=== PATIENT | female | born 1980 | race Two or more races ===

== ENCOUNTER 2021-03-09 07:34 | Outpatient (REF) | payer OTHER, SELFPAY ==
[2021-03-23 16:02] LABS: Binax Internal Control QC Valid; Binax Now Covid-19 Ag Negative (Negative)
== END 2021-03-09 07:35 | disposition home or self-care (01) ==
LOC: HO.LAB 07:34
PROVIDERS: Visit Provider Internal Medicine
DX: Z13.89 Encounter for screening for other disorder (principal)

== ENCOUNTER 2021-07-26 10:18 | Outpatient (REF) | payer OTHER, SELFPAY ==
[2021-07-26 11:12] LABS: MANUAL DIFF FLAG NO
[2021-07-26 11:21] LABS: Basophils Absolute Auto 0.1 X10*3/uL (0.0-0.2); Basophils Percent Auto 0.6 % (0-2); Eosinophils Absolute Auto 0.1 X10*3/uL (0.0-0.4); Eosinophils Percent Auto 1.1 % (0-4); Hematocrit 40.1 % (37.0-47.0); Hemoglobin 13.2 g/dl (12.0-16.0); Imm Gran Abs Auto 0.04 X10*3/uL (0.00-0.03); Imm Gran Pct Auto 0.4 % (0.0-0.4); Lymphocytes Absolute Auto 1.8 X10*3/uL (1.2-4.9); Lymphocytes Percent Auto 19.2 % (20-40); Mean Corpuscular HGB Conc 32.9 g/dl (31.0-35.0); Mean Platelet Volume 10.7 fL (9.4-12.3); Monocytes Absolute Auto 0.5 X10*3/uL (0.1-1.2); Monocytes Percent Auto 5.6 % (2-11); Neutrophils Absolute Auto 6.8 x10*3/uL (2.0-8.3); Neutrophils Percent Auto 73.1 % (45-73); Platelet Count 323 X10*3/uL (160-400); Red Blood Count 4.72 X10*6/uL (4.20-5.50); Red Cell Distribution Width 13.5 % (11.0-16.0); White Blood Count 9.3 X10*3/uL (4.8-10.8)
[2021-07-26 12:03] LABS: Ferritin 77 ng/mL (10-250); Thyroid Stimulating Hormone 1.67 uIU/mL (0.32-4.0)
[2021-07-26 12:14] LABS: Alanine Aminotransferase 12 U/L (0-31); Albumin Level 4.2 g/dL (3.5-5.0); Alkaline Phosphatase 63 U/L (39-117); Anion Gap 12 (12-20); Aspartate Amino Transferase 12 U/L (5-31); Bilirubin Total 0.6 mg/dL (0.0-1.0); Blood Urea Nitrogen 10 mg/dL (9-16); Calcium 9.6 mg/dL (8.4-10.2); Carbon Dioxide 24 mmol/L (22-29); Chloride 106 mmol/L (96-108); Cholesterol 210 mg/dL; Estimated Glomerular Filt Rate > 60; Glucose Random 95 mg/dL (60-115); HDL Cholesterol 46 mg/dL; Iron 111 mcg/dL (30-160); LDL Cholesterol Calculated 140 mg/dl; Percent Iron Saturation 26 % (15-50); Potassium 4.1 mmol/L (3.3-5.1); Sodium 138 mmol/L (135-145); Total Iron Binding Capacity 419 mcg/dL (228-428); Total Protein 7.6 g/dL (6.5-8.0); Triglycerides 121 mg/dL; Unsaturated Iron Binding 308 ug/dL
== END 2021-07-26 10:19 | disposition home or self-care (01) ==
LOC: HO.HMGCLDS 10:18
PROVIDERS: Visit Provider Physician Assistant
DX: Z00.00 Encounter for general adult medical examination without abnormal findings (principal); D50.0 Iron deficiency anemia secondary to blood loss (chronic); I10 Essential (primary) hypertension; E78.2 Mixed hyperlipidemia; Z83.49 Family history of other endocrine, nutritional and metabolic diseases
CPT/HCPCS: 36415; 80053; 80061; 82728; 83540; 84443; 85025

== ENCOUNTER 2023-08-24 08:17 | Outpatient (AMB) | payer OTHER, SELFPAY ==
--- NOTE | 2023-08-24 08:40 | AM.OFFWIN_ITS ---
Intake Vital Signs 08/24/23 08:43 Height 5 ft 2 in BP 112/72 Blood Pressure Location Lt brachial Position Sitting Pulse 96 Pulse Source Pulse Oximeter Temp 97.8 F Temp Source Temporal Artery Scan Pulse Oximetry (%) 99 Oxygen Delivery Method Room Air Intake Visit Reasons: EP lft leg pain Intake Note: pt is here for left leg pain 1 month ago Patient Tobacco Use Status: Never used Tobacco Allergies aspirin Adverse Reaction (Uncoded 08/24/23 08:45) Anaphylaxis Do you need a note to return to daycare/school/sports/work: No HPI HPI Comments History of Present Illness0 Details Patient is a 42-year-old female complaining of left calf pain x1 month. She states her calf is painful to palpation. She denies any recent travel, re cent surgeries, new exercise regimen, new shoes. She does sit all day every day for her job. She denies any personal or family history of blood clots. She denies any loss of strength or sensation in the left leg and can move her knee, ankle and foot as normal. She denies any discoloration in her left thigh. [facility] Social History Patient Tobacco Use Status: Never used Tobacco Review of Systems Const All systems reviewed & are unremarkable except as noted in HPI and below Physical Exam Vital Signs: Last Vital Signs Temp 97.8 F 08/24/23 08:43 Pulse 96 08/24/23 08:43 BP 112/72 08/24/23 08:43 Pulse Ox 99 08/24/23 08:43 Oxygen Delivery Method Room Air 08/24/23 08:43 Const General: cooperative, healthy appearing, comfortable, no acute distress and well developed Orientation/consciousness: patient oriented x3 Limitations: no limitations HEENT Head: Yes normal to inspection Eyes General: appearance normal, both eyes and all related structures Neck Neck: Yes normal visual inspection and Yes full ROM Resp Effort & Inspection: normal respiratory effort and able to speak in complete sentences Skin General skin exam: no rashes or lesions noted Neuro General: patient oriented x3 Extrem General: Yes normal to inspection Left lower extremity: lower leg (+ Wolf) Details: tenderness Location: of the posterior calf; no erythema, no localized swelling, no abrasions, no lacerations, no ecchymosis and no unusual warmth Assessment & Plan Assessment & Plan (1) Left leg pain: Code(s): M79.605 - Pain in left leg Plan: We will get ultrasound to rule out DVT as patient is sedentary in her drop every day and did have a positive Homans sign. Duplex ultrasound negative for DVT, advised rest ice compression and NSAIDS and follow up with PCP if no resolution in symptoms. Plan See above Orders: Orders US venous duplex LE LT Today M79.605 - Pain in left leg Coding Level of Care Code Est Pt Level 3 (19761) Diagnoses Left leg pain M79.605
[2023-08-24 08:43] VITALS: BP 112/72; PULSE 96; TEMP 36.6; O2SAT 99
== END 2023-08-24 09:50 | disposition home or self-care (01) ==
PROVIDERS: Visit Provider Physician Assistant
DX: M79.605 Pain in left leg (principal)
CPT/HCPCS: 99213

== ENCOUNTER 2023-08-24 09:44 | Outpatient (REF) | payer OTHER, SELFPAY ==
--- NOTE | ~2023-08-24 | US_ITS ---
EXAMINATION: US VENOUS ULTRASOUND WITH DOPPLER LOWER EXTREMITY, LEFT CLINICAL INFORMATION: Pain in left leg COMPARISON: None available. TECHNIQUE: Ultrasound of the deep veins is performed from the hip to the calf with compression sonography and color and pulse Doppler assessment. Spectral analysis with color-flow imaging is performed. FINDINGS: There is normal venous compression and respiratory variation.. The visualized common femoral vein, superficial femoral vein, profunda femoral vein, popliteal vein, and the posterior tibial and peroneal veins show no evidence of deep venous thrombosis. The contralateral common femoral vein demonstrates normal respiratory variation. US/US venous duplex LE LT IMPRESSION: No DVT demonstrated in the left lower extremity.
== END 2023-08-24 09:45 | disposition home or self-care (01) ==
LOC: HO.HMGCX 09:44
PROVIDERS: PCP Internal Medicine; Visit Provider Physician Assistant
DX: M79.605 Pain in left leg (principal)
CPT/HCPCS: 93971

== ENCOUNTER 2024-04-25 12:21 | Outpatient (AMB) | payer OTHER, SELFPAY ==
--- NOTE | 2024-04-25 12:51 | AM.OFFWIN_ITS ---
Intake Vital Signs 04/25/24 12:57 BP 144/110 H Pulse 111 H Pulse Source Pulse Oximeter Pulse Oximetry (%) 98 Oxygen Delivery Method Room Air Intake Visit Reasons: EP High BP, headache, nauseous [phone] Intake Note: Patient here for elevated BP, headache and nausea which started yesterday. Not on BP meds Patient Tobacco Use Status: Never used Tobacco Allergies aspirin Adverse Reaction (Uncoded 04/25/24 12:52) Anaphylaxis Do you need a note to return to daycare/school/sports/work: No HPI HPI Comments History of Present Illness Details 43 y/o female patient who presents to [facility] walk in clinic with c/o Elevated Blood Pressure, headaches and palpitations since yesterday. Denies any vision changes. Denies Chest pains, SOB and Wheezing. Denies any new stresses in life. [facility] Medical History (Updated 04/25/24 @ 13:10 by Jaz Milan NP) Elevated blood pressure reading in office without diagnosis of hypertension Social History Patient Tobacco Use Status: Never used Tobacco Review of Systems Const All systems reviewed & are unremarkable except as noted in HPI and below Physical Exam Vital Signs: Last Vital Signs Pulse 111 H 04/25/24 12:57 BP 144/110 H 04/25/24 12:57 Pulse Ox 98 04/25/24 12:57 Oxygen Delivery Method Room Air 04/25/24 12:57 Const General: cooperative and no acute distress Nutritional Appearance: overweight Orientation/consciousness: patient oriented x3 Resp Effort & Inspection: normal respiratory effort and able to speak in complete sentences Auscultation: clear to auscultation bilaterally, no crackles, no rales, no rhonchi and no wheezes Cardio Rate: tachycardic Heart sounds: S1 normal heart sound present and S2 normal heart sound present Neuro General: patient oriented x3 Assessment & Plan Assessment & Plan (1) Elevated blood pressure reading in office without diagnosis of hypertension: Code(s): R03.0 - Elevated blood-pressure reading, without diagnosis of hypertension Plan: Advised to go to ED for further evaluation and treatment. Medications: Discontinued hydrocortisone-pramoxine 2.5-1 % (Analpram-HC) Discontinued Reason: Patient Completed Course 1 appl IL BID 14 days PRN 30 grams 1RF hemorrhoids Coding Level of Care Code Est Pt Level 4 (11773) Diagnoses Elevated blood pressure reading in office without diagnosis of hypertension R03.0 Time Spent (min) 20
[2024-04-25 12:57] VITALS: BP 144/110; PULSE 111; O2SAT 98
--- OUTSIDE RECORDS SUMMARY | 2024-04-25 13:20 | XMS_ITS | Clinical Summary ---
Author Organization [facility] Address [address] [place] [address] Care Team Providers Care Coal Shoveler Name Role Phone Bre Motley MD Primary Care Prov ider Allergies Active Allergy Reactions Criticality Noted Date Comments Aspirin Hives,Shortness Of Breath High 03/16/2022 Medications Medication Sig Dispensed Refills Start Date End Date Status albuterol 108 (90 Base) MCG/ACT inhaler INHALE 2 PUFFS INTO THE LUNGS 4 TIMES DAILY NEEDED FOR COUGH, WHEEZING OR SHORTNESS OF BREATH. 0 12/09/2021 Active Arnuity Ellipta 50 MCG/ACT AEPB TAKE 1 PUFF BY MOUTH EVERY DAY 0 12/10/2021 Active Multiple Vitamin (MULTIVITAMIN ADULT PO) Take by mouth. 0 Active [place]-3 Fatty Acids (OMEGA-3 EPA FISH OIL PO) Take by mouth. 0 Active Cholecalciferol (Vitamin D) 50 MCG (2000 UT) CAPS Take by mouth. 0 Active cetirizine (ZyrTEC) 10 MG tablet Take 1 tablet (10 mg total) by mouth daily. 0 07/01/2022 Active amitriptyline (ELAVIL) 50 MG tablet 1 po hs 30 tablet 5 10/18/2022 Active galcanezumab-gnlm (Emgality) 120 MG/ML injectionIndications :Chronic non-specific white matter lesions on MRI Inject 1 mL (120 mg total) under the skin every 30 (thirty) days. 1 mL 5 10/24/2023 Active rizatriptan (MAXALT) 10 MG tablet TAKE 1 TABLET BY MOUTH NEEDED FOR MIGRAINE. MAY REPEAT IN 2 HOURS IF NEEDED 10 tablet 5 10/24/2023 Active Active Problems Problem Noted Date Diagnosed Date Migraine with aura 02/01/2006 Family History Medical History Relation Name Comments Hypertension Father Heart disease Mother Hypertension Mother Rheum arthritis Mother Relation Name Status Comments Father Alive Mother Alive Social History Tobacco Use Types Packs/Day Years Used Date Smoking Tobacco: Never Smokeless Tobacco: Never Tobacco Cessation:Counseling Given: Not Answered Alcohol Use Standard Drinks/Week Comments Not Currently 0 (1 standard drink = 0.6 oz pur e alcohol) Sex and Gender Information Value Date Recorded Sex Assigned at Female 03/30/2023 7:54 AM EST Gender Identity Not on file Sexual Orientation Not on file Job Start Date Occupation Industry Not on file Not on file Not on file Last Filed Vital Signs Vital Sign Reading Time Taken Comments Blood Pressure 150/93 10/24/2023 2:54 PM EDT Pulse 103 10/24/2023 2:54 PM EDT Temperature 36.3 ??C (97.4 ??F) 10/24/2023 2:54 PM ED T Respiratory Rate 16 07/19/2022 3:00 PM EDT Oxygen Saturation 98% 10/24/2023 2:54 PM EDT Inhaled Oxygen Concentration - - Weight 78.3 kg (172 lb 9.6 oz) 10/24/2023 2:54 P M EDT Height 157.5 cm (5' 2 ) 10/24/2023 2:54 PM EDT Body Mass Index 31.57 10/24/2023 2:54 PM EDT Plan of Treatment Health Maintenance Due Date Last Done Comments Hepatitis B Vaccines (1 of 3 - 3-dose series) 1978 Hepatitis C Screening 1978 Depression Screening 1990 BMI Counseling 1996 Preventative Health Evaluation 1996 Cervical Cancer Screening (Pap Smear) 09/06/1999 Colon Cancer Screening (Colonoscopy) 09/06/2023 COVID-19 Vaccine ( season) 2023 07/31/2020, 07/10/2020 Influenza Vaccine (#1) 2023 , 12/10/2021, 12/10/2021, Additional history exists DTap / Tdap / Td (3 - Td or Tdap) 05/29/2033 05/30/2023, 03/22/2012 Pneumococcal Vaccine Aged Out 05/21/2013 No long er eligible based on patient's age to complete this topic RSV Ped < 20 months Aged Out No longe r eligible based on patient's age to complete this topic Care Teams Coal Shoveler Relationship Specialty Start Date End Date Bre Motley MD [address] [place] [address] PCP - General Internal Medicine 02/09/22
--- OUTSIDE RECORDS SUMMARY | 2024-04-25 13:20 | XMS_ITS | Clinical Summary ---
Author Organization [facility] Address [address] [place] [address] Care Team Providers Care Expediter Service Order Name Role Phone Bre Hanley MD Primary Care Prov ider Allergies Active Allergy Reactions Criticality Noted Date Comments Aspirin-Caffeine Rash 02/20/2006 Ibuprofen 05/24/2013 Ortho-Cyclen (21) 11/05/2013 Worsening of migraine headaches with associated visual disturbances. Medications cetirizine (ZyrTEC) 10 mg tablet TAKE 1 TABLET BY MOUTH EVERY DAY 90 tablet 4 Active atorvastatin (LIPITOR) 10 mg tablet Take 1 tablet (10 mg total) by mouth 1 (one) time each day. 4 Active rizatriptan (MAXALT) 10 mg tablet TAKE 1 TABLET BY MOUTH NEEDED FOR MIGRAINE. MAY REPEAT IN 2 HOURS IF NEEDED 4 Active albuterol HFA (PROAIR HFA ; PROVENTIL HFA ; VENTOLIN HFA) 90 mcg/actuation inhaler Inhale 2 Puffs into the lungs 4 times daily as needed for Cough, Wheezing or Shortness of Breath. 4 Active fluticasone furoate (Arnuity Ellipta) 50 mcg/actuation blister with device inhaler Inhale 1 Puff into the lungs daily. 4 Active amitriptyline (ELAVIL) 50 mg tablet 1 po hs 3 Active ipratropium-alb uteroL (DUONEB) 0.5-2.5 mg/3 mL nebulizer solution Inhale 3 mL into the lungs 4 times daily. MAY DISPENSE SEPEATLY 2 Active SUMAtriptan (IMITREX) 50 mg tablet Take 1 tablet by mouth with onset of headache, May repeat dose once after 2 hours, if needed. (Max 2 in 24 hrs) 2 Active multivit-min/ir on fum/folic ac (ONE-A-DAY WOMEN'S COMPLETE ORAL) Take 1 Tab by mouth daily. 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 Silvestre and I believe her acute low back pain is from the small annular tear at L4-5 which typically causes local inflammation and radiculitis. Unfortunately, she did not respond to the Medrol Dosepak and still has pain on muscle relaxers. I doubt there would be any more benefit from a lumbar RIVAS given her lack of response to oral steroids. There is no role for surgery as there is no stenosis and I recommended physical therapy. A referral slip was provided. Cervical spondylosis 11/08/2022 Overview (03/07/2024): Last Assessment & Plan: I also reviewed her cervical spine MRI as Ms. Silvestre has tingling in her hands at the same time as the paresthesias in her legs and describes ongoing neck pain and headaches for the past year. The spondylosis here is also mild and only notable at C5-6 where there is a central disc osteophyte and no nerve root compression. The foraminal narrowing is minimal. I asked that they include her neck in the evaluation and treatment at physical therapy. White matter abnormality on MRI of brain 020 Overview (03/07/2024): MRI results showed deep white matter changes dfx included; vasculitis, infectous/inflammatroy, migraine headaches, multiple sclerosis. Sent to neuro. Ordered Lyme and syphillis. Patient notified. Hyperlipemia 03/27/2019 Hypertension 03/05/2018 Obesity (BMI 30.0-34.9) 03/05/2018 Hirsutism 05/31/2016 Allergic rhinitis due to allergen 07/08/2014 Iron deficiency anemia 03/29/2013 Acne 02/01/2006 Migraine with aura 02/01/2006 Immunizations Name Administration Dates Next Due Influenza Quadravalent, MDCK , 0.5ml, preservative free (Flucelvax) 6mo and older 03/27/2019 Influenza trivalent, 0.5mL, preservative free (Fluarix; FluLaval; Fluzone) ages 6mo and older (Afluria) 3 years and older 12/19/2022,12/10/2021,12/11/2015,11/30,12/27/2013,03/22/2012 Pneumococcal polysaccharide 23 valent (Pneumovax 23) 2yo and older 05/21/2013 Tdap Tetanus diptheria acell ular pertussis (Boostrix; Adacel) 7yo and older 05/30/2023,03/22/2012 Surgical History Surgery Date Site/Laterality Comments PARTIAL HYSTERECTOMY PROCEDURE:PARTIAL HYSTERECTOMY Medical History Medical History Date Comments Migraine DX:Migraine Asthma DX:Asthma Family History Medical History Relation Name Comments Hypertension Father Heart disease Mother Hypertension Mother Rheum arthritis Mother Relation Name Status Comments Father Alive Mother Alive Social History Tobacco Use Types Packs/Day Years Used Date Smoking Tobacco: Never Smokeless Tobacco: Never Alcohol Use Standard Drinks/Week Comments Not Currently 0 (1 standard drink = 0.6 oz pur e alcohol) Comments Unknown Sex and Gender Information Value Date Recorded Sex Assigned at Not on file Legal Sex Female 4:18 AM EST Gender Identity Not on file Sexual Orientation Not on file Obstetrics History Last Filed Vital Signs Vital Sign Reading Time Taken Comments Blood Pressure 150/93 10/24/2023 2:54 PM EDT Sitting Left arm Pulse 103 10/24/2023 2:54 PM EDT Temperature - - Respiratory Rate - - Oxygen Saturation - - Inhaled Oxygen Concentration - - Weight 78.3 kg (172 lb 9.6 oz) 10/24/2023 2:54 PM EDT Height 157.5 cm (5' 2 ) 10/24/2023 2:54 PM EDT Body Mass Index 31.57 10/24/2023 2:54 PM EDT Plan of Treatment Upcoming Encounters Date Type Department Care Team (Late st Contact Info) Description 06/08/2024 1:30 PM EDT Appointment Radiology Department - [address] [phone] 09/18/2024 11:00 AM EDT Office Visit [facility] - [address] [phone] Bre Hanley MD [address] [place] [address] [phone] Health Maintenance Due Date Last Done Comments Hepatitis B Vaccines (1 of 3 - 19+ 3-dose series) 1997 Pneumococcal Vaccine: Pediatrics (0 to 5 Years) and At-Risk Patients (6 to 64 Years) (2 of 2 - PCV) 05/21/2014 05/21/2013 Colorectal Cancer Screening: Colonoscopy 02/12/2022 HIV Screening 02/12/2022 Hepatitis C Screening 02/12/2022 Social Influencers of Health Screening 02/12/2022 COVID-19 Vaccine ( - season) 2023 07/31/2020, 07/10/2020 Influenza Vaccine (#1) 2023 , 12/10/2021, 03/27/2019, Additional history exists Depression Screening 05/29/2024 05/30/2023 Hypertension/CHF/CAD Annual BMP Blood Test 05/29/2024 05/30/2023 Breast Cancer Screening 06/08/2025 06/09/19 24, 05/30/2023, 11/25/2021, Additional history exists Cholesterol Screening (Lipid Panel) 05/29/2028 05/30/2023 DTaP,Tdap,and Td Vaccines (3 - Td or Tdap) 05/29/2033 05/30/2023, 03/22/2012 HIB Vaccines Aged Out No longer eligi ble based on patient's age to complete this topic HPV Vaccines Aged Out No longer eligi ble based on patient's age to complete this topic Hepatitis A Vaccines Aged Out No long er eligible based on patient's age to complete this topic IPV Vaccines Aged Out No longer eligi ble based on patient's age to complete this topic MMR Vaccines Aged Out No longer eligi ble based on patient's age to complete this topic Meningococcal ACWY Vaccine Aged Out N o longer eligible based on patient's age to complete this topic Meningococcal B Vacine Aged Out No lo nger eligible based on patient's age to complete this topic RSV Immunization Patients Under 20 months Aged Out No longer eligible based on patient's age to complete this topic Varicella Vaccines Aged Out No longer eligible based on patient's age to complete this topic Procedures Procedure Name Priority Date/Time Associated Diagnosis Comments DX MAMMO INCL CAD BI Routine 06/09/2023 9:29 AM EDT Other abnormal and inconclusive findings on diagnostic imaging of breast DEPRESSION SCREENING Routine 05/30/2023 ANNUAL BMP BLOOD TEST Routine 05/30/2023 LIPID PANEL Routine 05/30/2023 from Last 3 Months or Most Recently Relevant to Health Maintenance Results * DX MAMMO INCL CAD BI (06/09/2023 9:29 AM EDT) Anatomical Region Laterality Modality Mammography 06/01/2023 7:25 AM EDT Narrative 06/09/2023 9:31 AM EDT This is a summary report. The complete report is available in the patient's medical record. If you cannot access the medical record, please contact the sending organization for a detailed fax or copy. Bilateral Diagnostic Digital Mammogram History: Bilateral breast microcalcifications on screening mammogram of 05/30/2023. Technique: Magnification views of both breasts in the CC, MLO medial projections are obtained. There are punctate calcifications scattered in both breasts. There are no suspicious clusters in either breast. Impression: No mammographic evidence of malignancy. BI-RADS 2-benign Procedure Note Cici Arvizu MD - 10/23/2023 This is a summary report. The complete report is available in thepatient's medical record. If you cannot access the medical record, pleasecontact the sending organization for a detailed fax or copy. Bilateral Diagnostic Digital Mammogram History: Bilateral breast microcalcifications on screening mammogram of05/30/2023. Technique: Magnification views of both breasts in the CC, MLO medialprojections are obtained. There are punctate calcifications scattered in both breasts. There are no suspicious clusters in either breast. Impression: No mammographic evidence of malignancy. BI-RADS 2-benign Result [facility] Lupe ANDRADE IMG BI PROCEDURES Final Result * Annual BMP Blood Test (05/30/2023) Pathologist [facility] Annual BMP Blood Test Abstracted Result [facility] Provider HEALTH MAINTENANCE Final Result * Depression Screening (05/30/2023) Pathologist [facility] Depression Screening Abstracted Result [facility] Provider HEALTH MAINTENANCE Final Result * (ABNORMAL) Lipid panel (05/30/2023) Pathologist [facility] LDL/HDL Ratio 5(A) 0 - 4 Triglycerides 146 0 - 150 mg/dL Cholesterol 228(A) 0 - 200 mg/dL HDL 45 >=40 mg/dL LDL Cholesterol 154(A) 0 - 100 mg/dL Blood Venous blood specimen / Unknown Result [facility] Provider LAB BLOOD ORDERABLES Macarena l Result from Last 3 Months or Most Recently Relevant to Health Maintenance Advance Directives Documents on File Type Date Recorded Patient Tube Carrier Expl anation Health Care Decision (hx) 03/23/2018 AD RUTH DIRECTIVE Health Care Decision (hx) 03/23/2018 AD RUTH DIRECTIVE Health Care Decision (hx) 03/23/2018 AD RUTH DIRECTIVE Health Care Decision (hx) 03/23/2018 AD RUTH DIRECTIVE Health Care Decision (hx) 03/23/2018 AD RUTH DIRECTIVE Health Care Decision (hx) 03/23/2018 AD RUTH DIRECTIVE Health Care Decision (hx) 03/23/2018 AD RUTH DIRECTIVE Health Care Decision (hx) 03/19/2018 AD RUTH DIRECTIVE Health Care Decision (hx) 03/19/2018 AD RUTH DIRECTIVE Health Care Decision (hx) 03/19/2018 AD RUTH DIRECTIVE Health Care Decision (hx) 03/19/2018 AD RUTH DIRECTIVE Health Care Decision (hx) 03/19/2018 AD RUTH DIRECTIVE Health Care Decision (hx) 03/19/2018 AD RUTH DIRECTIVE Health Care Decision (hx) 03/19/2018 AD RUTH DIRECTIVE Care Teams Expediter Service Order Relationship Specialty Start Date End Date Bre Hanley MD PCP - General Internal Medicine 10/04/21
== END 2024-04-25 13:17 | disposition home or self-care (01) ==
PROVIDERS: PCP Internal Medicine; Visit Provider Nurse Practitioner Family
DX: R03.0 Elevated blood-pressure reading, without diagnosis of hypertension (principal)

== ENCOUNTER 2024-08-09 09:49 | Outpatient (AMB) | payer OTHER, SELFPAY ==
--- NOTE | 2024-08-09 09:55 | MHC.OFFWIV ---
Intake Vital Signs 08/09/24 09:58 Height 5 ft 2 in Weight 160 lb BMI 29.3 BP 124/88 Blood Pressure Location Rt brachial Position Sitting Respiration 16 Pulse 107 H Pulse Source Pulse Oximeter Temp 98.3 F Temp Source Oral Pulse Oximetry (%) 98 Oxygen Delivery Method Room Air Intake Visit Reasons: EP irritated [id number] Intake Note: Pt is here today c/o facial irritation Patient Tobacco Use Status: Never used Tobacco Allergies aspirin Adverse Reaction (Uncoded 08/09/24 09:56) Anaphylaxis HPI EP irritated [phone] HPI Details This is a 43-year-old female patient who presents to the walk-in clinic today with a rosacea flare. She reports this typically happens when the weather starts to get warmer. Was not able to get into her dermatology office for at least 1-2 months. Reports rosacea rash on cheeks and nose is painful and warm. She has been applying ice packs. [facility] Medical History Elevated blood pressure reading in office without diagnosis of hypertension Social History Patient Tobacco Use Status: Never used Tobacco Review of Systems Const All systems reviewed & are unremarkable except as noted in HPI and below Physical Exam Vital Signs: Last Vital Signs Temp 98.3 F 08/09/24 09:58 Pulse 107 H 08/09/24 09:58 Resp 16 08/09/24 09:58 BP 124/88 08/09/24 09:58 Pulse Ox 98 08/09/24 09:58 Oxygen Delivery Method Room Air 08/09/24 09:58 BMI result Body Mass Index 29.3 Const General: cooperative, healthy appearing, comfortable and no acute distress Resp Effort & Inspection: normal respiratory effort Skin Other: flushing/redness with acne-like bumps consistent with rosacea rash across cheeks and nose. No open areas. Skin warm to touch. Psych Appearance: grossly normal Mental Status: mental status grossly normal Speech and movement: Normal speech and movement present Assessment & Plan Assessment & Plan (1) Rosacea: Code(s): L71.9 - Rosacea, unspecified Plan: Patient has historically done well on doxycycline and metronidazole gel prescribed by dermatology for rosacea flares. She has not been able to get into her dermatology office. I will start her on this regimen. Reviewed indications, use, possible side effects of these medications. Advised also some cool compresses. If she does not improve with treatment, she can return to the clinic for further evaluation. She will follow up with dermatology as scheduled. Medications: New metronidazole 0.75% 1 appl topical BID 45 grams 1RF L71.9 - Rosacea, unspecified doxycycline hyclate 50 mg PO DAILY 10 days 10 caps 0RF L71.9 - Rosacea, unspecified Coding Level of Care Code Est Pt Level 4 (33136) Diagnoses Rosacea L71.9
[2024-08-09 09:58] VITALS: BP 124/88; PULSE 107; RESP 16; TEMP 36.8; O2SAT 98; BMI 29.3
--- OUTSIDE RECORDS SUMMARY | 2024-08-09 10:29 | XMS_ITS | Clinical Summary ---
Author Organization [facility] Address [address] [place] [address] Care Team Providers Care Beer Runner Name Role Phone Bre Motley MD Primary [...] ADULT PO) Take by mouth. 0 Active [place]-3 Fatty Acids (OMEGA-3 EPA FISH OIL PO) [...] ( season) 2023 07/31/2020, 07/10/2020 Influenza Vaccine (Season Ended) 2024 12/19/2022, 12/10/2021, 12/10/2021, Additional history exists DTap / Tdap / Td (3 - Td or Tdap) 05/29/2033 05/30/2023, 03/22/2012 Pneumococcal Vaccine Aged Out 05/21/2013 No long er eligible based on patient's age to complete this topic RSV Ped < 20 months Aged Out No longe r eligible based on patient's age to complete this topic Care Teams Beer Runner Relationship Specialty Start Date End Date Bre Motley MD [address] [place] [address] PCP - General Internal Medicine 02/09/22
== END 2024-08-09 10:20 | disposition home or self-care (01) ==
PROVIDERS: PCP Internal Medicine; Visit Provider Nurse Practitioner Family
DX: L71.9 Rosacea, unspecified (principal)

== ENCOUNTER → 2024-08-09 09:49 | Outpatient (BNVA) | payer OTHER, SELFPAY | PROVIDERS: PCP Internal Medicine; Visit Provider Nurse Practitioner Family ==